=== PATIENT | male | born 1985 | race Caucasian/White ===

== ENCOUNTER 2016-05-15 11:09 | Outpatient (CLI) | payer BC | END 2016-05-15 11:10 | disposition home or self-care (01) | DX: R53.83 Other fatigue (principal) ==

== ENCOUNTER 2016-06-20 09:40 | Outpatient (CLI) | payer BC | END 2016-06-20 09:41 | disposition home or self-care (01) | DX: E29.1 Testicular hypofunction (principal) ==

== ENCOUNTER 2016-06-28 14:47 | Outpatient (CLI) | payer BC | END 2016-06-28 14:48 | disposition home or self-care (01) | DX: M79.662 Pain in left lower leg (principal) ==

== ENCOUNTER 2016-08-15 10:25 | Outpatient (CLI) | payer BC | END 2016-08-15 10:26 | disposition home or self-care (01) | DX: E29.1 Testicular hypofunction (principal) ==

== ENCOUNTER 2016-10-10 10:05 | Outpatient (CLI) | payer BC | END 2016-10-10 10:06 | disposition home or self-care (01) | LOC: LAB.F 10:05 | PROVIDERS: ATTEND Family Medicine | DX: I82.403 Acute embolism and thrombosis of unspecified deep veins of lower extremity, bilateral (principal); Z79.01 Long term (current) use of anticoagulants ==

== ENCOUNTER 2016-10-10 10:32 | Outpatient (CLI) | payer BC | END 2016-10-10 10:33 | disposition home or self-care (01) | LOC: LAB.F 10:32 | PROVIDERS: ATTEND Physician Assistant Medical | DX: Z79.01 Long term (current) use of anticoagulants (principal) | CPT/HCPCS: 36415; 84403; 85610 ==

== ENCOUNTER 2016-11-21 09:52 | Outpatient (CLI) | payer BC | END 2016-11-21 09:53 | disposition home or self-care (01) | LOC: LAB.F 09:52 | PROVIDERS: ATTEND Family Medicine | DX: E29.1 Testicular hypofunction (principal) | CPT/HCPCS: 36415; 84403 ==

== ENCOUNTER 2017-08-03 10:19 | Outpatient (CLI) | payer OTHER | END 2017-08-03 10:20 | disposition home or self-care (01) | LOC: LAB.F 10:19 | PROVIDERS: ATTEND Family Medicine | DX: E29.1 Testicular hypofunction (principal) | CPT/HCPCS: 36415; 84403 ==